=== PATIENT | male | born 1965 ===

== ENCOUNTER → 2017-09-17 | Outpatient (CLI) | payer OTHER ==
[~2017-09-17] VITALS: Ht 162.6 cm; Wt 74.8 kg
[~2017-09-17] MED LIST: ZANTAC300 MG PO
== END | disposition home or self-care (01) ==
LOC: OFIC 805 07:52
DX: J31.0 Chronic rhinitis (principal); M54.2 Cervicalgia; J37.0 Chronic laryngitis